=== PATIENT | female | born 1960 | race Caucasian/White ===

== ENCOUNTER 2016-05-01 13:20 | Emergency (ER) | payer OTHER ==
[~2016-05-01] VITALS: Ht 165.1 cm; Wt 62.0 kg
[~2016-05-01 13:20] MED LIST: BABY ASPIRIN81 M1 PO; CALCIUM 500 MG1 EACH PO; CYANOCOBAL1000 MCG/2 IM; DULERA 100 MCG/13 GM IH; DULERA 200 MCG/13 GM IH; FIBER500 MG PO; FLONASE16 G1 BOTH NARES; FLUTICASONE PRO16 GM; HYDROCODON-ACE1 EAC7 PO; LEXAPRO10 MG PO; LEXAPRO20 MG PO; LO-DOSE ASPIRIN81 M1 PO; MULTIPLE VITAM1 EAC4 PO; PREDNISONE20 MG PO; VENTOLIN HFA18 GM IH; VERAPAMIL ER200 MG PO; VERELAN PM200 MG PO; VICODIN,LORT1 TABLET PO; VITAMIN D2000 INTUN PO; VITAMIN D33000 UNIT PO; XOPENEX HF200 INHALA IH; ZITHROMAX Z-PA250 MG PO
[2016-05-01] MEDS ORDERED: CHANTIX1 EACH PO (14:29)
[2016-05-01] MEDS ORDERED: MOTRIN800 MG PO (15:31)
[2016-05-01] MEDS ORDERED: ULTRACET1 TABLET PO (15:31)
[2016-05-01] MEDS ORDERED: VALIUM5 MG PO (15:31)
[2016-05-01 16:10] VITALS: BP 135/63
== END 2016-05-01 16:11 | disposition home or self-care (01) ==
LOC: EME 13:20 → RME 13:20
DX: S16.1XXA Strain of muscle, fascia and tendon at neck level, initial encounter (principal); S39.012A Strain of muscle, fascia and tendon of lower back, initial encounter; S29.012A Strain of muscle and tendon of back wall of thorax, initial encounter; S20.20XA Contusion of thorax, unspecified, initial encounter; S29.011A Strain of muscle and tendon of front wall of thorax, initial encounter; V49.40XA Driver injured in collision with unspecified motor vehicles in traffic accident, initial encounter; Y92.488 Other paved roadways as the place of occurrence of the external cause; R51 Headache; Z98.1 Arthrodesis status
CPT/HCPCS: 71020; 71120; 72040; 72070; 72100; 99281; 99284; J3010

== ENCOUNTER 2016-05-04 18:13 | Emergency (ER) | payer OTHER ==
[~2016-05-04] VITALS: Ht 165.1 cm; Wt 61.6 kg
[~2016-05-04 18:13] MED LIST changes: +CHANTIX1 EACH PO; +MOTRIN800 MG PO; +ULTRACET1 TABLET PO; +VALIUM5 MG PO
[2016-05-04] MEDS ORDERED: ZOFRAN4 MG PO (22:08)
[2016-05-04 22:10] VITALS: BP 120/71
== END 2016-05-04 22:12 | disposition home or self-care (01) ==
LOC: EME 18:13
DX: G44.209 Tension-type headache, unspecified, not intractable (principal); S16.1XXA Strain of muscle, fascia and tendon at neck level, initial encounter; V49.40XD Driver injured in collision with unspecified motor vehicles in traffic accident, subsequent encounter; F17.200 Nicotine dependence, unspecified, uncomplicated
CPT/HCPCS: 70450; 99281; 99285; J2270

== ENCOUNTER 2016-06-15 19:25 | Emergency (ER) | payer OTHER ==
[~2016-06-15] VITALS: Ht 165.1 cm; Wt 59.5 kg
[~2016-06-15 19:25] MED LIST changes: +ZOFRAN4 MG PO
[2016-06-15] MEDS ORDERED: ULTRAM50 MG PO (22:08)
[2016-06-15 22:49] VITALS: BP 114/60
== END 2016-06-15 22:50 | disposition home or self-care (01) ==
LOC: EME 19:25
DX: M25.571 Pain in right ankle and joints of right foot (principal); Z88.2 Allergy status to sulfonamides; Z88.6 Allergy status to analgesic agent
CPT/HCPCS: 73610; 99281; 99284